=== PATIENT | male | born 1995 | race Caucasian/White ===

== ENCOUNTER 2022-05-25 22:23 | Emergency (ER) | payer MEDICAID, OTHER ==
--- NOTE | 2022-05-25 22:39 | ED General ---
General Stated Complaint: THROAT PAIN Source of Information: Patient Exam Limitations: No Limitations History of Present Illness Date Seen by Provider: May 25, 2022 Time Seen by Provider: 22:23 Initial Comments 26-year-old male with no pertinent past medical history coming in due to sore throat. Started this morning, is mild to moderate, burning pain in the back of his throat, worse with swallowing, better with rest. Took ibuprofen earlier which also helped. His daughter was diagnosed with strep throat yesterday and he did drink after her. Denies any cough, fever, nausea, vomiting, diarrhea, abdominal pain, chest pain, shortness of breath, rash, or any other concerns. Allergies and Home Medications Allergies Coded Allergies: No Known Drug Allergies (Unverified , 05/25/22) Patient Home Medication List Home Medication List Reviewed: Yes Review of Systems Review of Systems Constitutional: No fever EENTM: throat pain; No blurred vision Respiratory: No cough Cardiovascular: No chest pain Gastrointestinal: No abdominal pain Genitourinary: no symptoms reported Musculoskeletal: no symptoms reported Skin: no symptoms reported Psychiatric/Neurological: No Symptoms Reported Hematologic/Lymphatic: No Symptoms Reported Immunological/Allergic: no symptoms reported All Other Systems Reviewed Negative Unless Noted: Yes Past Tzwacge-[id number]-Lgqbpf Hx Patient Social History Substance use?: No Alcohol Use?: No Past Medical History Surgeries: No Physical Exam Vital Signs Capillary Refill : Height, Weight, BMI Height: '" Weight: lbs. oz. kg; BMI Method: General Appearance: No Apparent Distress, WD/WN Eyes: Bilateral Eye Normal Inspection HEENT: PERRL/EOMI, Other (Erythematous tonsils but no exudate, no obvious abscess with uvula midline, normal voice, throat is not tender) Neck: Full Range of Motion, Normal Inspection, Non Tender, Supple Respiratory: Chest Non Tender, Lungs Clear, Normal Breath Sounds, No Accessory Muscle Use, No Respiratory Distress Cardiovascular: Regular Rate, Rhythm, No Edema, Normal Peripheral Pulses Gastrointestinal: Normal Bowel Sounds, Non Tender, Soft; No Distended, No Guarding Back: Normal Inspection, No CVA Tenderness Extremity: Normal Capillary Refill, Normal Inspection, Normal Range of Motion, Non Tender, No Calf Tenderness, No Pedal Edema Neurologic/Psychiatric: Alert, No Motor/Sensory Deficits, Normal Mood/Affect Skin: Normal Color, Warm/Dry Lymphatic: No Adenopathy Progress/Results/Core Measures Suspected Sepsis SIRS Temperature: Pulse: Respiratory Rate: Blood Pressure / Mean: Results/Orders Lab Results Laboratory Tests Test 05/25/22 22:27 Range/Units Group A Streptococcus Screen NEGATIVE NEGATIVE My Orders Orders - HERLINDA ROBBINS MD Rapid Strep A Screen (05/25/22 22:27) Vital Signs/I&O Capillary Refill : Progress Note : Progress Note 26-year-old male with above history coming in due to sore throat after being exposed to someone that was positive for strep throat. ABCs were intact and vitals were stable on presentation. He has no red flags for sore throat and is overall well-appearing, tolerating secretions. Strep test sent and was negative. Gave him a dose of Decadron for the pharyngitis. I believe stable for discharge with outpatient follow-up. He was sent home with strict return precautions Departure Impression Primary Impression: Pharyngitis Qualified Codes: J02.8 - Acute pharyngitis due to other specified organisms Disposition: HOME, SELF-CARE Condition: Stable Departure-Patient Inst. Decision time for Depature: 22:47 Patient Instructions: Sore Throat, Adult (DC) Add. Discharge Instructions: You fortunately do not have strep throat. We did give you a steroid that long- acting that should help with it. Otherwise take ibuprofen and/or Tylenol as needed. Work/School Note: Work Release Form Date Seen in the Emergency Department: May 25, 2022 Return to Work: May 27, 2022 Restrictions: No Restrictions HERLINDA ROBBINS MD May 25, 2022 22:39
== END 2022-05-25 22:54 | disposition home or self-care (01) ==
LOC: EDUNIT# 22:23 → ER FS 22:24
DX: J02.9 Acute pharyngitis, unspecified (principal)
CPT/HCPCS: 87430; 99283